=== PATIENT | male | born 1940 | race Caucasian/White ===

== ENCOUNTER 2017-06-19 05:00 | Emergency (ER) | payer OTHER ==
[~2017-06-19] VITALS: Ht 185.4 cm; Wt 120.2 kg
[~2017-06-19 05:00] MED LIST: ACYCLOVIR 400400 MG PO; ALLOPURINOL 10100 M1 PO; AMBIEN 5 MG TABL5 M1 PO; ANALGESIC325 MG PO; ASPIR 8181 MG PO; ASPIRIN BUFFER325 MG PO; CARVEDILOL6.25 MG PO; CLONIDINE HCL0.2 M2 PO; COLACE100 MG PO; IMURAN 50MG TAB50 M1 PO; JANUMET 50-1,01 EACH PO; JANUVIA100 MG PO; LASIX 40 MG TAB40 M1 PO; LASIX 40 MG TAB40 MG PO; LEVEMIR SUBQ; LISINOPRIL10 MG PO; MIRALAX17 GM PO; MYFORTIC360 MG PO; NEPHROCAPS SOFT1 CAP PO; NIACINAMIDE500 M1 PO; NORVASC10 MG PO; OMEPRAZOLE20 MG PO; ONE DAILY MULT1 EACH PO; PHOSLO667 MG PO; PRINIVIL20 M1 PO; PROGRAF 1 MG1 MG PO; PROTONIX40 M2 PO; RENALPREN SOFTGE1 MG; SIMVASTATIN40 MG PO; SIMVASTATIN80 MG PO; SODIUM BICARBO650 M3 PO; VITAMIN D1000 UNI1 PO; ZANAFLEX4 M1 PO; ZOFRAN ODT4 MG PO; [UNRECOGNIZED DRUG - OTHER] PO
[2017-06-19] MEDS ORDERED: KEFLEX500 MG PO (05:26)
[2017-06-19] MEDS ORDERED: NORCO 5-325 TA1 EACH PO (06:11)
[2017-06-19 07:02] VITALS: BP 200/101
== END 2017-06-19 07:04 | disposition home or self-care (01) ==
LOC: ER 05:00
DX: S81.811A Laceration without foreign body, right lower leg, initial encounter (principal); E11.9 Type 2 diabetes mellitus without complications; I10 Essential (primary) hypertension; F10.99 Alcohol use, unspecified with unspecified alcohol-induced disorder; N19 Unspecified kidney failure; Z86.73 Personal history of transient ischemic attack (TIA), and cerebral infarction without residual deficits; Z90.49 Acquired absence of other specified parts of digestive tract; Z87.891 Personal history of nicotine dependence; Z91.041 Radiographic dye allergy status; Z79.4 Long term (current) use of insulin; W18.39XA Other fall on same level, initial encounter; Y93.01 Activity, walking, marching and hiking; Y92.003 Bedroom of unspecified non-institutional (private) residence as the place of occurrence of the external cause; Y99.8 Other external cause status

== ENCOUNTER 2018-02-12 10:18 | Inpatient (IN) | payer OTHER ==
[~2018-02-12] VITALS: Ht 185.4 cm; Wt 108.9 kg
--- NOTE | ~2018-02-12 | HC ---
[facility] [place] [address] CONSULTATION Name: CÉSAR AKHTAR Room #: 409-P [facility] IN M.R.#: [id number] Admission: 02/12/18 Attend Phys: Brian Tafoya Discharge: 02/13/18 Date of : 44 Report #: [id number] THIS REPORT FOR: //name// CC: Brian Tafoya Vito Kellogg DATE OF SERVICE: 02/13/2018 ATTENDING PHYSICIAN: Dr. Tafoya. REASON FOR CONSULTATION: Kidney transplant and hypertension. HISTORY OF PRESENT ILLNESS: The patient is well known to our service, previous dialysis patient who has had a renal transplant for several years. The transplant has done well with reasonably good renal function and a baseline creatinine level in the range of 1.0. Followed by Dr. Nguyen in our office on a regular basis, seen relatively recently and has been doing well. The patient fell, broke his left shoulder, after a few days decided to come to the hospital, comminuted fracture of left humerus was found. He is here to get it fixed. He is quite anxious as well, possibly even a little confused. PAST MEDICAL HISTORY: Longstanding diabetes mellitus, end-stage renal disease, status post dialysis right arm fistula, status post renal transplant, 2-drug immunosuppression doing well, hypertension can be severe, previous CVA, left hemiparesis x 10 years. HOME MEDICATIONS: Januvia 100 mg daily, allopurinol 100 mg daily, carvedilol 6.25 mg b.i.d., Myfortic 360 mg b.i.d., aspirin 81 mg daily, simvastatin 40 mg daily, lisinopril 10 mg daily, Zantac 150 mg daily, tacrolimus 0.5 mg b.i.d., chlorthalidone 25 mg daily, diazepam 4 mg at bedtime, hydrocodone p.r.n., Lantus insulin. FAMILY HISTORY: Negative for renal disease. SOCIAL HISTORY: Former cigarette smoker, was a heavy smoker, but has quit for a while now. No substantial alcohol. REVIEW OF SYSTEMS: GENERAL: He is very anxious. EYES: Vision is okay. ENT: Hearing okay. No mouth sores. ENDOCRINE: Positive for the diabetes. RESPIRATORY: He denies shortness of breath, pleuritic pain, cough or hemoptysis. CARDIAC: Denies chest pain, angina, history of myocardial infarction, does have [facility] [address] [place] [address] CONSULTATION Name: CÉSAR AKHTAR Room #: 409-P [facility] IN M.R.#: [id number] Admission: 02/12/18 Attend Phys: Brian Tafoya Discharge: 02/13/18 Date of : 44 Report #: [id number] chronic leg swelling. GASTROINTESTINAL: Appetite okay. No nausea, vomiting, diarrhea or bloody stools. GENITOURINARY: Reasonably good stream. No hematuria noted. PSYCHIATRIC: Quite anxious. NEUROMUSCULAR: Left hemiparesis after his stroke. PHYSICAL EXAMINATION: GENERAL: This is a very anxious, tremulous gentleman, seen in his hospital bed. SKIN: Multiple ecchymoses throughout. SKELETAL: Overweight. HEENT: Extraocular movements are full. Vision intact. No scleral icterus. Hearing intact. Mucous membranes moist. NECK: Supple, no carotid bruits can be heard. CHEST: Clear to auscultation. HEART: Regular without murmurs, gallops or rubs. ABDOMEN: Soft and nontender, without bruits, masses, or organomegaly. EXTREMITIES: Left hemiparesis is apparent and 1+ brawny lower extremity edema also apparent. LABORATORY DATA: Hemoglobin is 13.7, platelets 149. Sodium 137, potassium 3.4, chloride 101, bicarbonate 29, creatinine 0.9, BUN 20. ASSESSMENT AND PLAN: 1. Renal transplant, has been stable on 2-drug immunosuppression. These will be continued, mycophenolate and tacrolimus. 2. Status post comminuted fracture left humerus. Orthopedics on consult. 3. Difficult hypertension. Medications adjusted, saline stopped. 4. Status post cerebrovascular accident with left hemiparesis. 5. High anxiety. 6. Diabetes mellitus. <ELECTRONICALLY SIGNED> By: Ty Flores MD 02/18/18 1022 0927 [id number] Ty Flores MD /nt
--- NOTE | ~2018-02-12 | HC ---
[facility] [place] [address] CONSULTATION Name: CÉSAR AKHTAR Room #: 409-P [facility] IN M.R.#: [id number] Admission: 02/12/18 Attend Phys: Brian Tafoya Discharge: 02/13/18 Date of : 44 Report #: [id number] THIS REPORT FOR: //name// CC: Brian Tafoya Vito Kellogg DATE OF SERVICE: 02/13/2018 CHIEF COMPLAINT: Left proximal humerus fracture. HISTORY OF PRESENT ILLNESS: This frail, heavy 77-year-old gentleman with multiple chronic medical problems had previous severe renal disease and I believe a successful renal transplant with satisfactory renal function at this point. He also had a stroke with very poor, limited function in the left upper extremity. He is still living with his and functioning adequately at home, but with some difficulty given these preexisting problems. He states he ambulates with a cane in a very limited fashion. He apparently fell at home injuring the left shoulder. X-rays in the Emergency Room reveal a fracture at the surgical neck extending down into the metaphyseal region. The humeral head is still well positioned and the glenoid. There is only minor degenerative change. He apparently had no other significant new injuries. Initially, the plan was for him to go home to the Emergency Department, but it was felt he was simply too unstable and uncomfortable to manage at home with only the assistance of his . He was therefore admitted for further evaluation and treatment and further planning. At the time of my evaluation, he is somewhat anxious and agitated, but is cooperative during my exam. He states he has very limited function of the left upper extremity due to his previous stroke and uses the arm only occasionally for gentle balancing. He notes he has generalized discomfort in other areas and has some chronic degenerative osteoarthritis. He notes he is ambulatory with a cane balancing this with the right hand. PHYSICAL EXAMINATION: He is quite heavy and deconditioned. There is a good deal of scarring and bruising in both upper extremities and old vascular access fistula in both arms. There is today a moderate amount of new bruising about the left arm with moderate scarring about the left arm and forearm. The left shoulder seems to be in satisfactory alignment. There is no obvious deformity. He is mildly uncomfortable with movement of the shoulder. The wrist, his hand is held in a somewhat flexed position consistent with chronic spasticity given his old stroke. In general, the left upper extremity appears to be nonfunctional from a general standpoint. X-rays of left shoulder reveal a mildly comminuted fracture in the surgical neck and extending down toward the metaphyseal region. There is moderate osteoporosis. The joint surfaces are well aligned. [address] [address] CONSULTATION Name: GIOVANACÉSAR AGUILAR Room #: 409-P [facility] IN M.R.#: [id number] Admission: 02/12/18 Attend Phys: Brian Tafoya Discharge: 02/13/18 Date of : 44 Report #: [id number] IMPRESSION: In general summary, I have explained to the patient that we might consider surgical repair of the fracture principally to allow better and safer movement and improve comfort; however, he is at significant risk for any surgery given his age and other general medical problems in the big picture fixation of the fracture will help much with left upper extremity function as he is essentially completely nonfunctional on that side as a result of his previous stroke. Given this, we both agreed that it would be better to avoid surgery if possible. I have explained that the fracture will be somewhat uncomfortable, but may be manageable with arm sling or shoulder immobilizer and I think there is a reasonably good potential this will heal in with nonsurgical treatment over the coming month or two. He states he would like to avoid surgery and has declined that option for now. He states he would like to leave the hospital and go home. I have explained that this will depend on his ability to be safe and function independently. I think the plan is for some ongoing therapy and assistance here and it has already been recommended that he might benefit from a short stay at an extended care facility. He is currently refusing that option. From my view; however, I doubt that he will be able to manage at home with his elderly unless he has other significant assistance from family and nursing and visiting therapy. When those arrangements are adequately established, then I think hospital discharge would be appropriate. He may continue with either arm sling or shoulder immobilizer for protection. I am happy to see him back in the office in 10-20 days for followup and repeat x-ray. If pain or instability is a severe problem that we may reconsider the option of surgical stabilization, but I think it is best to avoid surgery in this gentleman given the other significant problems. <ELECTRONICALLY SIGNED> By: Italo Dugan MD 02/15/18 1055 1238 1754 Italo Dugan MD /nt
[~2018-02-12 10:18] MED LIST changes: -CARVEDILOL6.25 MG PO; +COREG6.25 MG PO; +KEFLEX500 MG PO; +NORCO 5-325 TA1 EACH PO
[2018-02-12 10:19] VITALS: BP 197/97
[2018-02-12] MEDS ORDERED: NORCO 5-325 TA1 EACH PO (12:38)
[2018-02-12] MEDS ORDERED: MULTIVITAMINS1 EAC7 PO (13:36)
[2018-02-12] MEDS ORDERED: ONDANSETRON HCL4 M2 PO (13:36)
[2018-02-12] MEDS ORDERED: ZANTAC 150MG T150 MG PO (13:37)
[2018-02-12] MEDS ORDERED: CHLORTHALIDONE25 MG PO (13:39)
[2018-02-12] MEDS ORDERED: TACROLIMUS0.5 MG PO (13:39)
[2018-02-12] MEDS ORDERED: DIAZEPAM 2MG TAB2 MG PO (13:40)
[2018-02-12] MEDS ORDERED: LORCET PLUS 7.1 EACH PO (13:41)
[2018-02-12] MEDS ORDERED: LANTUS100 UNIT/M SUBQ (13:42)
[2018-02-12 15:03] LABS: ABSOLUTE NEUTROPHILS 7.2 thou/uL (1.4-8.2); BASOPHILS 0.5 % (0.0-2.0); EOSINOPHILS 4.7 % (0.0-3.0); LYMPHOCYTES 13.3 % (24.0-44.0); MCH 32.5 pg (26.0-34.0); MCHC 35.2 g/dL (28.0-37.0); MCV 92.3 fL (80.0-100.0); MONOCYTES 9.3 % (1.0-8.0); PLATELET COUNT 139 thou/uL (150-400); POLYS 72.2 % (36.0-66.0); RBC 4.01 mil/uL (4.50-6.00); RDW 13.5 % (10.5-14.5)
[2018-02-12 15:08] VITALS: BP 219/102
[2018-02-12 15:10] LABS: POTASSIUM 3.4 mmol/L (3.5-5.1)
[2018-02-12 16:03] VITALS: BP 221/95
[2018-02-12 17:27] VITALS: BP 207/116
[2018-02-12 18:06] VITALS: BP 145/69
[2018-02-12 21:13] VITALS: BP 165/82
[2018-02-13 01:12] LABS: URINE BILIRUBIN NEGATIVE (Negative); URINE BLOOD NEGATIVE (Negative); URINE CLARITY CLEAR; URINE COLOR YELLOW; URINE GLUCOSE-RANDOM* NEGATIVE (Negative); URINE KETONES NEGATIVE (Negative); URINE LEUKOCYTES-REFLEX NEGATIVE (Negative); URINE NITRITE-REFLEX NEGATIVE (Negative); URINE PROTEIN (DIPSTICK) 1+ (Negative); URINE UROBILINOGEN 0.2 E.U./dl (0.2-1.0)
[2018-02-13 01:34] LABS: CASTS None Seen /LPF (None Seen); SQUAMOUS None Seen /LPF (0-3); URINE RBC 0-2 Rare /HPF (0-2); URINE WBC-REFLEX 0-5 Rare /HPF (0-5)
[2018-02-13 01:35] LABS: BACTERIA-REFLEX None Seen /HPF (None Seen)
[2018-02-13 04:43] VITALS: BP 198/102
[2018-02-13 05:32] LABS: ABSOLUTE NEUTROPHILS 6.4 thou/uL (1.4-8.2); BASOPHILS 0.5 % (0.0-2.0); EOSINOPHILS 5.9 % (0.0-3.0); HEMOGLOBIN 13.7 gm/dL (14.0-18.0); LYMPHOCYTES 13.7 % (24.0-44.0); MCH 32.5 pg (26.0-34.0); MCHC 35.1 g/dL (28.0-37.0); MCV 92.7 fL (80.0-100.0); MONOCYTES 10.7 % (1.0-8.0); PLATELET COUNT 149 thou/uL (150-400); POLYS 69.2 % (36.0-66.0); RBC 4.21 mil/uL (4.50-6.00); RDW 14.3 % (10.5-14.5); WBC 9.2 thou/uL (4.0-11.0)
[2018-02-13 05:47] LABS: CALCIUM 9.9 mg/dL (8.5-10.1); CREATININE 0.9 mg/dL (0.7-1.3); MAGNESIUM 1.7 mg/dL (1.8-2.4); POTASSIUM 3.4 mmol/L (3.5-5.1)
[2018-02-13 07:13] LABS: GLYCOHEMOGLOBIN (HGB A1C) 5.7 % (4.8-5.6)
[2018-02-13 07:24] VITALS: BP 154/111
[2018-02-13 11:54] VITALS: BP 154/76
[2018-02-13 15:28] VITALS: BP 154/76
[2018-02-13] MEDS ORDERED: ACYCLOVIR 400400 MG PO (17:11)
[2018-02-13] MEDS ORDERED: NOVOLOG100 UNIT/1 SUBQ (17:11)
[2018-02-13] MEDS ORDERED: ENOXAPARIN30 MG/0.1 SUBQ (17:11)
[2018-02-13] MEDS ORDERED: CILOXAN3.5 GM OPHTHALMIC (17:11)
[2018-02-13 19:44] VITALS: BP 128/69
== END 2018-02-13 21:05 | DRG 562 ==
LOC: ER 10:18 → EROBS 13:25 → 4N 13:25
PROVIDERS: Nurse Practitioner
DX: S42.292A Other displaced fracture of upper end of left humerus, initial encounter for closed fracture (principal); N18.6 End stage renal disease; E43 Unspecified severe protein-calorie malnutrition; I69.951 Hemiplegia and hemiparesis following unspecified cerebrovascular disease affecting right dominant side; Z94.0 Kidney transplant status; I12.0 Hypertensive chronic kidney disease with stage 5 chronic kidney disease or end stage renal disease; I16.0 Hypertensive urgency; E11.22 Type 2 diabetes mellitus with diabetic chronic kidney disease; F41.9 Anxiety disorder, unspecified; E66.9 Obesity, unspecified; Z66 Do not resuscitate; Z79.899 Other long term (current) drug therapy; Z79.82 Long term (current) use of aspirin; W18.30XA Fall on same level, unspecified, initial encounter; Y93.89 Activity, other specified; Y92.89 Other specified places as the place of occurrence of the external cause; Y99.8 Other external cause status; Z90.49 Acquired absence of other specified parts of digestive tract; Z91.041 Radiographic dye allergy status; Z87.891 Personal history of nicotine dependence; Z98.49 Cataract extraction status, unspecified eye; Z68.31 Body mass index [BMI] 31.0-31.9, adult; Z99.2 Dependence on renal dialysis
CPT/HCPCS: 10790

== ENCOUNTER 2018-02-13 17:30 | Inpatient (IN) | payer OTHER ==
[~2018-02-13] VITALS: Ht 185.4 cm; Wt 105.6 kg
--- NOTE | ~2018-02-13 | HC ---
[facility] [place] [address] CONSULTATION Name: CÉSAR AKHTAR Room #: 505-P [facility] IN M.R.#: [id number] Admission: 02/13/18 Attend Phys: Italo Gil MD Discharge: Date of : 44 Report #: [id number] THIS REPORT FOR: //name// CC: Italo Hesterore Kellogg DATE OF SERVICE: 02/13/2018 HISTORY OF PRESENT ILLNESS: The patient is a 77-year-old white male with a prior CVA with left upper extremity flaccid paresis greater than left lower extremity weakness, a prior history of kidney failure on dialysis with subsequent renal transplant. He utilizes a right handheld 4-pronged cane to get into his power wheelchair. He is able to ambulate a short distance with the 4-pronged cane. He ended up having a fall onto his left side. This was a mechanical fall and occurred approximately 5 days prior to admission. He notes he was "stubborn" and did not come in right away. Upon admission, he was diagnosed with a displaced comminuted fracture of the surgical neck of the humerus. He has been admitted and is to be seen by Orthopedics. We are seeing him in rehabilitation medicine consultation. PAST MEDICAL HISTORY: Includes diabetes mellitus type 2, hypertension, and obesity. ALLERGIES: IODINATED CONTRAST. HABITS: Tobacco abuse, quit greater than a year ago, smoked for 40 years, 3 packs a day. Alcohol special occasions. SOCIAL HISTORY: Lives with , condominium, no steps. uses a cane to get around as well. He was able to transfer himself independently, but did need some assistance with dressing which his provided. REVIEW OF SYSTEMS: He has the left upper extremity pain. No current chest pain, shortness of breath or abdominal discomfort. PHYSICAL EXAMINATION: GENERAL: A 77-year-old overweight white male, somewhat cantankerous, in no obvious distress. VITAL SIGNS: Last recorded temperature 97.8, pulse 87, respirations 18, blood pressure 154/111. He is alert. HEENT: Facies appeared symmetric. EXTREMITIES: Functional range of motion of the right upper extremity without focal weakness. Left upper extremity reveals significant ecchymosis of the proximal arm. He has considerable weakness of that left upper extremity, but it was difficult to assess with his fracture. He appears to have definite tightness of all 5 fingers with a fisted type positioning, but does have some [facility] [address] [place] [address] CONSULTATION Name: CÉSAR AKHTAR Room #: 505-P [facility] IN M.R.#: [id number] Admission: 02/13/18 Attend Phys: Italo Gil MD Discharge: Date of : 42 Report #: [id number] limited thumb and finger flexion. In his lower extremities, he has venous stasis changes. I would grade his strength at a 4-/5. Tone appeared to be intact. ASSESSMENT: A 77-year-old white male with the following problem list: 1. Left-sided hemiparesis, upper extremity greater than lower extremity. 2. Displaced comminuted fracture, surgical neck of the humerus. 3. Prior cerebrovascular accident. 4. Status post renal transplant. Had previously been on dialysis. 5. Diabetes mellitus. 6. Hypertension. PLAN: Orthopedics to evaluate. We will then need to see how he does with his therapies pending what Orthopedics recommends. We will be glad to follow along with you regarding his rehab therapy needs. <ELECTRONICALLY SIGNED> By: Italo Gil MD 02/25/18 1221 1125 2231 Italo Gil MD /[facility]
--- NOTE | ~2018-02-13 | HC ---
[facility] [place] [address] CONSULTATION Name: CÉSAR AKHTAR Room #: 505-P [facility] IN M.R.#: [id number] Admission: 02/13/18 Attend Phys: Italo Gil MD Discharge: Date of : 44 Report #: [id number] THIS REPORT FOR: //name// CC: Italo Hesterkendrick Kellogg DATE OF SERVICE: 02/16/2018 NEUROBEHAVIORAL STATUS EXAM: ATTENDING PHYSICIAN: Italo Gil MD. ALLIGATOR SHEAR OPERATOR: Maik Chau, PhD. CLINICAL PRESENTATION: The patient is a 77-year-old male admitted to the rehab unit at [facility] for comprehensive inpatient rehabilitation program to improve functional mobility and activities of daily living and self-care and mental status secondary to deficits from a possible head trauma from a fall and lingering deficits from an old CVA. He reported that he fell and suffered a displaced humerus fracture. He carries diagnoses of type 2 diabetes mellitus, hypertension, status post renal transplant and agitation. He also has a history of alcohol abuse. He has had previous treatment for an alcohol abuse disorder. It should be noted that he was drinking at the time of the fall. He reports an approximate 6-pack of beer daily. The stroke is reported to have been about 12 years ago. Prior to this most recent admission, he was living with the assistance of his in their home. The patient is retired from work as a clamp truck driver. He has a 10th grade education. TECHNIQUES UTILIZED: Clinical interview, review of medical records, staff consultation and behavioral observation, mini mental status exam 2 standard version and brief category fluency assessment. EXAMINATION FINDINGS: The patient was alert and cooperative with the assessment. He accurately described the reason for his hospitalization. He reports being irritable and easily frustrated. He does not report difficulty with sleep, appetite or energy level. He acknowledges his history of alcohol abuse. Increased anxiety and depression is also reported. Deficits with memory and word finding are described. His performance on the MMSE 2 brief version is in the mild to moderate range of impairment with a raw score of 12, T score 34 and percentile rank of 5. Performance on the MMSE 2 standard version is in the mild to moderate range of impairment with a T score 35 and functioning at the 7th percentile. Category [facility] [address] [place] [address] CONSULTATION Name: CÉSAR AKHTAR Room #: 505-P [facility] IN M.R.#: [id number] Admission: 02/13/18 Attend Phys: Italo Gil MD Discharge: Date of : 44 Report #: [id number] fluency is at the 12th percentile with a T score of 39. The patient is presenting with mild to moderate deficits in cognition. The extent of the cognitive disorder is likely consistent with his preexisting level of functioning. Variability in his use of alcohol is likely contributing to variability in his functioning within the community. DIAGNOSTIC IMPRESSION: Major neurocognitive disorder (dementia), unspecified, with intermittent irritability and decreased tolerance for frustration -- likely in the mild to moderate range of severity. Unspecified depressive disorder. RECOMMENDATIONS: The patient should be discouraged from further alcohol use. Medications with sedating features should be limited as much as possible. The use of an antidepressant with anxiolytic features may be of benefit. He is taking trazodone at night to assist with sleep. When irritable, gentle confrontation about the effect of his irritability on the environment will be of benefit to improve behavioral control. Thank you very much for allowing me to provide the consultation on this patient. <ELECTRONICALLY SIGNED> By: Maik Chau, PhD 02/17/18 1220 1436 0034 Maik Chau, PhD /nt
--- NOTE | ~2018-02-13 | H ---
[facility] [address] HISTORY AND PHYSICAL Name: CÉSAR AKHTAR Room #: 505-P AD[facility] IN M.R.#: [id number] Admission: 02/13/18 Attend Phys: Italo Gil MD Discharge: Date of : 44 Report #: [id number] THIS REPORT FOR: //name// CC: Italo Hesterore Kellogg DATE OF SERVICE: 02/14/2018 HISTORY AND PHYSICAL ADDENDUM/POSTADMISSION PHYSICIAN EVALUATION HISTORY OF PRESENT ILLNESS: Please see Emily Figueroa's dictation. I agree with her assessment and her examination. The patient has now been admitted for acute in-hospital inpatient rehabilitation. He has left hemiparesis with late effect of a CVA and has had balance problems with falling to the left. He sustained a displaced humerus fracture, is being handled non-conservatively as per Dr. Dugan with placement in an immobilizer. He has now been admitted for inpatient rehabilitation. Agree with the assessment and plan and diagnoses which include left hemiparesis, upper greater than lower extremity and late effect cerebrovascular accident as well as the displaced humeral fracture. From a post-admission physician evaluation, there are no relevant changes since the preadmission screening. Please see the above review of prior and current medical and functional conditions and comorbidities. Please see the previous and current functional status. As far as risk of complications, the patient has multiple medical comorbidities as noted above. He is a prior renal transplant patient as well. He will be involved in the interdisciplinary acute inpatient rehabilitation program with the goal of maximizing his functional independence, so that he can hopefully return back to his prior living situation. The initial plan of care involves the interdisciplinary acute inpatient rehabilitation program with the goal of maximizing his functional independence. Measurable functional goals for him will be especially working on independence with basic transfers from the bed to the chair for him, especially from the bed to the power wheelchair. He is nonweightbearing in the left upper extremity with the humerus fracture and is in the immobilizer. Prognosis is reasonably good with estimated length of stay probably at least 7-10 days, although I know he wants to leave earlier. We will simply need to see how he does functionally. Potential barriers would include his above noted comorbidities and his decreased functional status. <ELECTRONICALLY SIGNED> By: Italo Gil MD 02/25/18 1221 1250 1415 Italo Gil MD /[facility]
--- NOTE | ~2018-02-13 | H ---
[facility] [place] [address] HISTORY AND PHYSICAL Name: CÉSAR AKHTAR Room #: 505-P [facility] IN M.R.#: [id number] Admission: 02/13/18 Attend Phys: Italo Gil MD Discharge: 02/27/18 Date of : 44 Report #: [id number] THIS REPORT FOR: //name// CC: Italo Kellogg DO DATE OF SERVICE: 02/13/2018 HISTORY OF PRESENT ILLNESS: This is a 77-year-old gentleman who was originally admitted to [facility] after a fall at home. He presented 5 days later to the Emergency Department and was found to have a left displaced comminuted fracture of the surgical neck of the humerus. He was seen by Orthopedics and conservative treatment with no weightbearing and shoulder immobilizer was recommended. He has prior history of a CVA with left upper extremity flaccid paresis greater than the left lower extremity weakness. He also has history of kidney failure, on dialysis with subsequent renal transplant. He has been admitted to inpatient rehabilitation for further aggressive therapy treatment prior to returning back to his home. Today, he is seen in his room. He denies pain at present. He is easily agitated and is very irritated that I am asking him any questions. He is providing very limited history at this point and is mostly obtained from prior medical records and reviewed with staff. 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 ALLERGIES: IODINE CONTRAST. HABITS: Tobacco abuse. Quit greater than 1 year ago, smoked for 30 years, 3 packs a day. He is a social drinker. He is and lives with his . SOCIAL HISTORY: Lives in a house with his , it is all 1 level. There are zero steps to enter. He was using a quad cane around the home. He uses an electric scooter for longer distances and in the community. He required some assistance with dressing, which his provided at home. He was able to transfer himself independently prior. REVIEW OF SYSTEMS: Remainder of his 12-point review of systems negative except as listed in HPI. PHYSICAL EXAMINATION: VITAL SIGNS: 168/83, respirations 20, pulse of 86, temperature 36.4. GENERAL: He is awake, alert. He is oriented x 3. He is agitated and anxious. He is in no acute distress. HEENT: EOMs intact. Facies appear symmetrical. [facility] [address] [place] [address] HISTORY AND PHYSICAL Name: CÉSAR AKHTAR Room #: 505-P [facility] IN .R.#: [id number] Admission: 02/13/18 Attend Phys: Italo Gil MD Discharge: 02/27/18 Date of : 44 Report #: [id number] CHEST: Clear to auscultation bilaterally. CARDIOVASCULAR: S1, S2. SKIN: Scattered bruising in bilateral extremities, especially left shoulder large ecchymosis. EXTREMITIES: Right upper extremity functional range of motion intact. Left upper extremity and shoulder immobilizer, left hand fingers tightness ____ position. Bilateral lower extremity venous stasis changes. Tone intact. Bilateral lower extremity strength 4-/5. No clonus. NEUROLOGIC: Sensation intact. LABORATORY DATA: On 02/13/2018, sodium 137, potassium 3.4, BUN 20, creatinine 0.9, magnesium 1.7, calcium 9.9, hemoglobin A1c 5.7. WBC is 9.2, hemoglobin 13.7, hematocrit 39, platelets 149. Vitamin B12 646. Chest x-ray on 02/12 shows no acute process. Urinalysis on 02/13 negative for UTI. ASSESSMENT: 1. Left hemiparesis, upper extremity greater than lower extremity. 2. Late effect cerebrovascular accident. 3. Displaced humerus fracture. 4. Type 2 diabetes mellitus. 5. Hypertension. 6. Status post renal transplant. 7. Agitation. PLAN: The patient is admitted to inpatient rehabilitation. He will be on physical, occupational therapies. I have placed a consult for Speech Therapy to evaluate cognition as the patient was living at home with independent prior. We will continue to assess his rehabilitation therapy needs. ADDENDUM HISTORY AND PHYSICAL/POST-ADMISSION PHYSICAL EVALUATION Please see my prior consult note dictation from yesterday. Please see nurse practitioner, Emily Figueroa's, history and physical which I agree. The patient has been admitted for acute in-hospital inpatient rehabilitation. Temperature 36.4, pulse 86, respirations 20, blood pressure 168/83. He has the left hemiparesis and prior CVA with gait instability and had a fall onto his left upper body sustaining a left humeral fracture. He is being handled conservatively as per Dr. Dugan in Orthopedics. He does have considerable ecchymosis of that left shoulder. He had considerable agitation and frustration yesterday and we are trying to work with him further today. Again, see the nurse practitioner's history and physical examination. No [facility] [address] [place] [address] HISTORY AND PHYSICAL Name: CÉSAR AKHTAR Room #: 505-P [facility] IN M.R.#: [id number] Admission: 02/13/18 Attend Phys: Italo Gil MD Discharge: 02/27/18 Date of : 44 Report #: [id number] further changes are made in this regard. Functionally, he has been max assist with bed to chair transfers and has taken up to 4 steps. He has a powered wheelchair that he utilize at home, but could transfer himself with a cane. The post-admission physician evaluation is performed and there are no relevant changes since the preadmission screening. Please see the above dictated review of prior and current medical and functional conditions and comorbidities. Please see the patient's previous and current functional status. As far as risk of complications, the patient does have multiple medical comorbidities as noted above. The initial plan of care involves the interdisciplinary acute inpatient rehabilitation program with the goal of maximizing his functional independence, so that he can hopefully return back to his prior living situation. Measurable functional goals would be for him to achieve independence with basic transfers if at all possible. He needs to get to a point where his can handle him at home again. Prognosis is reasonably good with estimated length of stay probably at least 10 days to 2 weeks pending progress. Potential barriers would include the pain, shoulder immobilizer and his decreased functional status as well as his multiple medical comorbidities. The patient meets diagnostic criteria for an acute in-hospital inpatient rehabilitation stay. He does have the left hemiparesis. He has late effect cerebrovascular accident and now he has the complication with the left humeral fracture, being treated nonsurgically. He also has his noted medical comorbidities and is status post prior renal transplant. He does meet the medical necessity criteria for an acute in-hospital inpatient rehabilitation stay. He does have the tolerance for therapies and has appropriate discharge goals back to the home setting. <ELECTRONICALLY SIGNED> By: TIAGO Hicks 03/01/18 [id number] [id number] TIAGO Hicks /nt
--- NOTE | ~2018-02-13 | PLAN ---
[facility] [place] [address] [place] [address] REHAB UNIT PLAN OF CARE Name: CÉSAR AKHTAR Room #: 505-P ADM IN M.R.#: [id number] Admission: 02/13/18 Attend Phys: Italo Gil MD Discharge: Date of : 44 Report #: [id number] THIS REPORT FOR: //name// CC: Italo Pendletonvitaliy Kellogg DATE OF SERVICE: 02/15/2018 PROGRESS NOTE AND OVERALL PLAN OF CARE The patient is seen back today in followup. He is frustrated by his need to be here on rehabilitation, but he appears to understand what her goals are after I explained further to him. His last recorded temperature 36.3, pulse 82, respirations 17, blood pressure was 149/91. No focal calf swelling. Left upper extremity is in an immobilizer. Transfers have been mod assist. He has ambulated 5 feet mod assist with a quad cane. In occupational therapy, lower body dressing is max assist. In speech therapy, he has moderate comprehensive deficits. ASSESSMENT: 1. Left hemiparesis, upper extremity greater than lower extremity. 2. Late effect cerebrovascular accident. 3. Displaced humeral fracture. 4. Diabetes mellitus type 2. 5. Hypertension. 6. Status post renal transplant. PLAN: The overall plan of care is based on the preadmission screen, post-admission physician evaluation and information garnered from therapy assessments. 1. Estimated length of stay is probably at least 7 days and likely longer as needed. 2. Medical prognosis is reasonably good. 3. Anticipated interventions includes the interdisciplinary acute inpatient rehabilitation program with goal of maximizing his functional independence, he can hopefully return back to his prior living situation. 4. Anticipated functional outcomes would be for the patient to become modified independent with basic transfers as he was able to do before as well as improvement with his ADLs, so he can reach his prior level of functional independence to return back home. 5. Discharge destination would be back home with his . 6. Expected therapy by discipline includes PT and OT and speech therapy, 1-1/2 hours per day each five days a week throughout the duration of the acute [address] [address] REHAB UNIT PLAN OF CARE Name: CÉSAR AKHTAR Room #: 505-P [facility] IN M.R.#: [id number] Admission: 02/13/18 Attend Phys: Italo Gil MD Discharge: Date of : 44 Report #: [id number] inpatient rehabilitation stay. We may be able to taper off the speech therapy in favor of more PT and OT depending upon how he does. <ELECTRONICALLY SIGNED> By: Italo Gil MD 02/25/18 1221 [id number] Italo Gil MD /PMT
[~2018-02-13 17:30] MED LIST changes: +CHLORTHALIDONE25 MG PO; +CILOXAN3.5 GM OPHTHALMIC; +DIAZEPAM 2MG TAB2 MG PO; +ENOXAPARIN30 MG/0.1 SUBQ; +LANTUS100 UNIT/M SUBQ; +LORCET PLUS 7.1 EACH PO; +MULTIVITAMINS1 EAC7 PO; +NOVOLOG100 UNIT/1 SUBQ; +ONDANSETRON HCL4 M2 PO; +TACROLIMUS0.5 MG PO; +ZANTAC 150MG T150 MG PO
[2018-02-14 08:38] VITALS: BP 168/83
[2018-02-14 10:15] LABS: HEMOGLOBIN 14.6 gm/dL (14.0-18.0); MCH 32.6 pg (26.0-34.0); MCHC 34.8 g/dL (28.0-37.0); MCV 93.8 fL (80.0-100.0); RBC 4.47 mil/uL (4.50-6.00); RDW 14.1 % (10.5-14.5); WBC 9.2 thou/uL (4.0-11.0)
[2018-02-14 10:26] LABS: CALCIUM 9.7 mg/dL (8.5-10.1); CREATININE 0.9 mg/dL (0.7-1.3); MAGNESIUM 1.6 mg/dL (1.8-2.4); POTASSIUM 3.9 mmol/L (3.5-5.1)
[2018-02-14 20:04] VITALS: BP 141/51
[2018-02-15 08:10] VITALS: BP 149/91
[2018-02-15 19:46] VITALS: BP 108/68
[2018-02-16 16:45] VITALS: BP 173/93
[2018-02-16 19:30] VITALS: BP 165/86
[2018-02-17 07:52] VITALS: BP 151/58
[2018-02-17 20:00] VITALS: BP 107/85
[2018-02-18 06:10] LABS: ALBUMIN 3.1 g/dL (3.4-5.0); CALCIUM 8.9 mg/dL (8.5-10.1); CREATININE 0.8 mg/dL (0.7-1.3); PHOSPHORUS 3.2 mg/dL (2.5-4.9); POTASSIUM 3.9 mmol/L (3.5-5.1)
[2018-02-18 07:52] VITALS: BP 144/83
[2018-02-18 16:35] VITALS: BP 121/49
[2018-02-18 19:05] VITALS: BP 96/63
[2018-02-19 08:00] VITALS: BP 140/78
[2018-02-19 19:17] VITALS: BP 108/47
[2018-02-20 06:48] LABS: ALBUMIN 3.3 g/dL (3.4-5.0); CALCIUM 8.9 mg/dL (8.5-10.1); CREATININE 1.2 mg/dL (0.7-1.3); PHOSPHORUS 3.8 mg/dL (2.5-4.9); POTASSIUM 3.7 mmol/L (3.5-5.1)
[2018-02-20 07:30] VITALS: BP 136/72
[2018-02-20 16:50] VITALS: BP 138/89
[2018-02-20 19:40] VITALS: BP 134/53
[2018-02-21 07:50] VITALS: BP 135/67
[2018-02-21 20:28] VITALS: BP 138/74
[2018-02-22 06:12] LABS: ALBUMIN 3.5 g/dL (3.4-5.0); CALCIUM 9.2 mg/dL (8.5-10.1); PHOSPHORUS 2.7 mg/dL (2.5-4.9); POTASSIUM 4.2 mmol/L (3.5-5.1)
[2018-02-22 08:30] VITALS: BP 151/68
[2018-02-22 20:10] VITALS: BP 146/80
[2018-02-23 07:30] VITALS: BP 171/77
[2018-02-23 11:30] VITALS: BP 168/77
[2018-02-23 21:24] VITALS: BP 164/55
[2018-02-24 08:59] VITALS: BP 145/56
[2018-02-24 11:40] VITALS: BP 146/75
[2018-02-24 19:13] VITALS: BP 135/52
[2018-02-25 04:21] LABS: ABSOLUTE NEUTROPHILS 6.3 thou/uL (1.4-8.2); BASOPHILS 0.7 % (0.0-2.0); EOSINOPHILS 3.8 % (0.0-3.0); HEMATOCRIT 38.2 % (42.0-52.0); HEMOGLOBIN 13.1 gm/dL (14.0-18.0); MCH 32.5 pg (26.0-34.0); MCHC 34.4 g/dL (28.0-37.0); MCV 94.4 fL (80.0-100.0); MONOCYTES 11.2 % (1.0-8.0); PLATELET COUNT 180 thou/uL (150-400); POLYS 66.3 % (36.0-66.0); RBC 4.04 mil/uL (4.50-6.00); RDW 14.6 % (10.5-14.5); WBC 9.4 thou/uL (4.0-11.0)
[2018-02-25 04:24] LABS: CALCIUM 9.7 mg/dL (8.5-10.1); CREATININE 0.9 mg/dL (0.7-1.3)
[2018-02-25 08:15] VITALS: BP 145/79
[2018-02-25 19:00] VITALS: BP 100/62
[2018-02-26 08:00] VITALS: BP 145/70
[2018-02-26 14:36] VITALS: BP 130/62
[2018-02-26] MEDS ORDERED: NOVOLOG100 UNIT/1 SUBQ (17:22)
[2018-02-26 19:12] VITALS: BP 154/60
[2018-02-27 06:00] VITALS: BP 147/55
[2018-02-27 07:40] VITALS: BP 160/59
[2018-02-27 10:09] VITALS: BP 130/62
== END 2018-02-27 10:10 | disposition home health service (06) | DRG 563 ==
LOC: ENTRNSPT 02-27 09:47 → EDTRNSPTSTS 02-27 09:48
PROVIDERS: Family Medicine; Hospitalist; Internal Medicine Nephrology; Nurse Practitioner Family
DX: S42.212A Unspecified displaced fracture of surgical neck of left humerus, initial encounter for closed fracture (principal); Z94.0 Kidney transplant status; I69.954 Hemiplegia and hemiparesis following unspecified cerebrovascular disease affecting left non-dominant side; E11.9 Type 2 diabetes mellitus without complications; I10 Essential (primary) hypertension; E66.9 Obesity, unspecified; E53.8 Deficiency of other specified B group vitamins; E55.9 Vitamin D deficiency, unspecified; K59.00 Constipation, unspecified; F01.50 Vascular dementia, unspecified severity, without behavioral disturbance, psychotic disturbance, mood disturbance, and anxiety; F32.9 Major depressive disorder, single episode, unspecified; M25.519 Pain in unspecified shoulder; Z99.2 Dependence on renal dialysis; Z91.041 Radiographic dye allergy status; Z87.891 Personal history of nicotine dependence; W19.XXXA Unspecified fall, initial encounter; Y93.89 Activity, other specified; Y92.098 Other place in other non-institutional residence as the place of occurrence of the external cause; Y99.8 Other external cause status; Z68.30 Body mass index [BMI] 30.0-30.9, adult
CPT/HCPCS: 10112

== ENCOUNTER 2019-12-11 12:38 | Inpatient (IN) | payer OTHER ==
[~2019-12-11] VITALS: Ht 182.9 cm; Wt 94.2 kg
--- NOTE | ~2019-12-11 | H ---
[facility] [place] [address] HISTORY AND PHYSICAL Name: CÉSAR AKHTAR Room #: 354-P ADM IN M.R.#: [id number] Admission: 12/11/19 Attend Phys: Joyce Liao MD Discharge: Date of : 42 Report #: [id number] THIS REPORT FOR: //name// CC: Aroldo Liao DATE OF SERVICE: 12/11/2019 CHIEF COMPLAINT: Decreased responsiveness with a recent flu a week ago. HISTORY OF PRESENT ILLNESS: The patient is a 79-year-old gentleman known to our hospital with prior hospitalization and has a longstanding history of diabetes mellitus type 2, hypertension, dementia, alcohol related neurocognitive disorder, end-stage renal disease with a history of dialysis and then status post kidney transplant and two immunosuppressant drugs on board. The patient recently was [facility] and he was given Tamiflu for last 5 days. The patient's informs me that for the last couple of days, which is basically 2-3 days, but not specifically she informs that for last 2-3 days, he has been having severe diarrhea and also he has been less communicative and has not been able to eat or drink much. informs me that the patient started with flu-like symptoms approximately 5-6 days ago, but at that time, he was awake and alert and was eating and drinking well; however, was diagnosed with flu and he was started on Tamiflu as per the jail physician and then the patient started having significant diarrhea in last 2-3 days with decreased oral intake and has progressively gotten worse and today all he has done is moan and complaining of abdominal pain and has been coughing intermittently. The patient's does not recall him having any fever or shaking chills in the last 24-48 hours as per and has not had any nausea or vomiting either, diarrhea profuse watery is what she describes as just a large amount of diarrhea and decreased oral intake. The patient received two 250 mL boluses as soon as en route and EKG showed first-degree heart block and the patient when arrived in the ER, was afebrile, drowsy and moaning, but responding to any tactile stimulus and responding to his name and he had stat blood work done and IV fluid started. CBC with diff, comprehensive metabolic panel, blood gas and urinalysis was done. Venous blood gas indicated pH of 7.403 and a pCO2 of 39 and the patient had lactate of 2.81 elevated, on room air and oxygen saturation was 95% when he arrived on room air; however, was placed on 2 liters of oxygen by nasal cannula because of the cough and respiratory symptoms. The patient was complaining of abdominal pain and so CT scan of the abdomen and pelvis was done without contrast and for altered mental status, ER physician had a CT scan of the head. CT head showed significant brain atrophy and also no acute changes and CT scan of abdomen and pelvis showed enlarged right ileocolic nodes and a left pelvic renal transplant without hydronephrosis. The patient also had mild basilar pulmonary atelectasis as well as infiltrate. Even though the chest x-ray was negative, but a CT scan of the abdomen and pelvis indicated [facility] [address] [place] [address] HISTORY AND PHYSICAL Name: CÉSAR AKHTAR Room #: 354-P [place] IN M.R.#: [id number] Admission: 12/11/19 Attend Phys: Joyce Liao MD Discharge: Date of : 42 Report #: [id number] pulmonary infiltrate and severe bilateral __ renal atrophy. The patient is being admitted to critical care tele with sepsis and pneumonia and diarrhea of unclear etiology and acute renal insufficiency. PAST MEDICAL HISTORY: 1. The patient's informs me that the patient has had a stroke more than 10 years ago with residual left sided hemiplegia and hemiparesis. The patient is basically bedbound and has been nonambulatory. 2. The patient has had end-stage renal disease with dialysis initially followed by Dr. Nguyen in clinic and then status post kidney transplant and currently on 2 immunosuppressant drugs. 3. Hypertension. 4. Diabetes mellitus type 2. 5. History of neurocognitive disorder of moderate severity with dementia. 6. History of alcohol abuse and dependence. 7. Chronic obstructive pulmonary disease. 8. Hyperlipidemia. 9. Severe malnutrition. 10. Major depressive disorder. ALLERGIES: ACCORDING TO THE THE PATIENT IS ALLERGIC TO IODINE, WHICH CAUSES SWELLING OF THE BODY. PERSONAL AND SOCIAL HISTORY: The patient quit smoking 20 years ago; however, prior to that, he had 2 packs per day smoking history and a patient drank a lot of alcohol according to the and he still continues to drink some at the jail, but currently he is only having beer and according to the , the patient has not sustained any fall as he has been basically bedbound for quite some time. The patient has advanced directives, is the durable power of health care attorney for health and she is the emergency contact and her number is [phone] and informs me that the patient actually has wished to be DNR. PAST SURGICAL HISTORY: The patient has had AV fistula in his right arm and also has had a kidney transplant 7 years ago. does not recall any other surgeries. FAMILY HISTORY: Mother had lung cancer, which was related to heavy tobacco use and she does not recall any history on the paternal side of the family. CURRENT MEDICATIONS: 1. The patient is on carvedilol. 2. Lisinopril. 3. Lantus insulin. 4. Januvia. 5. Allopurinol. 6. Mycophenolate sodium. [facility] [place] [address] HISTORY AND PHYSICAL Name: CÉSAR AKHTAR Room #: 354-P [place] IN M.R.#: [id number] Admission: 12/11/19 Attend Phys: Joyce Liao MD Discharge: Date of : 42 Report #: [id number] 7. Tacrolimus. 8. Aspirin. 9. Docusate sodium. 10. Simvastatin. 11. Multivitamin. 12. Ranitidine. 13. Chlorthalidone. 14. Diazepam at bedtime. 15. Hydrocodone with acetaminophen daily p.r.n. for pain. 16. Sliding scale insulin. 17. Norflex 100 b.i.d. for muscle spasm recently given. REVIEW OF SYSTEMS: 1. The patient is just moaning and groaning and also just responding to his name and is unable to give any review of system history and according to the , the patient has had decreased p.o. intake. 2. Profuse diarrhea. 3. Flu 5 days ago. 4. Cough with a decreased responsiveness for last 2 days. PHYSICAL EXAMINATION: VITAL SIGNS: At the time of examination, the patient had temperature 36.6, heart rate 65, respiration 18, blood pressure 113/56 and pulse oximeter 96% on room air. GENERAL: The patient was somnolent, responding to his name, but however, falls asleep again and easily arouses or rather agitated when tactile stimulus or any IV blood draw was given or Perez catheter was placed. The patient was very agitated and angry with any physical touch and was moving all 4 extremities. HEENT: Pupils were equally round, reactive to light. Extraocular muscle movement could not be tested. Conjunctivae clear. Sclerae nonicteric. Scalp was atraumatic, normocephalic. Mucous membranes dry. However, oropharynx exam was very limited as the patient was not opening his mouth fully. NECK: No lymphadenopathy. No thyromegaly noted. HEART: S1, S2, regular. No murmur, S3 or S4 noted. LUNGS: Coarse breath sounds in the bases bilaterally with crackles noted. No wheezes noted. ABDOMEN: The patient was sensitive to touch with any abdominal exam in the whole belly; however, abdomen remained soft and no rigidity noted. Just diffuse discomfort all throughout the abdomen, but the abdomen was nondistended and no mass palpable. EXTREMITIES: The patient is moving all four extremities, no edema noted. SKIN: The patient had a sacral decubitus ulcer noted on his skin. NEUROLOGICAL EXAM: The patient was somnolent, old left sided hemiparesis with some residual weakness noted, but when the patient was agitated, he was moving all [address] [address] HISTORY AND PHYSICAL Name: CÉSAR AKHTAR Room #: 354-P [facility] IN M.R.#: [id number] Admission: 12/11/19 Attend Phys: Joyce Liao MD Discharge: Date of : 42 Report #: [id number] ELECTROCARDIOGRAM: Normal sinus rhythm with heart rate 61 and QTc was prolonged at 571. LABORATORY DATA: The patient had a WBC count significantly elevated at 20,600 with bandemia 5% and segmented neutrophil 80%. The patient had a hemoglobin 13.0, hematocrit 39.4, and platelet 151 with normal indices for red blood cells. Chemistries indicate sodium 137, potassium critically low at 2.6, chloride 100, bicarbonate 25, anion gap 12, BUN 88, creatinine elevated at 2.1 with the patient's baseline creatinine being 1.0, estimated GFR today is 31. Serum glucose was elevated to 233, calcium 8.5, phosphorus 3.5, magnesium 2.0, total bilirubin 0.8, AST 24, ALT 24, alkaline phosphatase 97. Troponin I is 0.18, total protein 5.6, albumin 1.8, lipase 56. Influenza A and B were negative and anion gap was normal at 12. Blood cultures were sent from the Emergency Room are pending at the time of dictation. CT scan of abdomen and pelvis without contrast was unremarkable except both lower lungs with minimal infiltrate noted. Diffuse bladder wall thickening and nonspecific ileocolic lymph node noted, transplanted kidney in the left pelvis noted without any hydronephrosis and status post cholecystectomy noted. Chest x-ray indicated no acute cardiopulmonary process, borderline heart size and mild pulmonary fibrosis and CT scan of the head indicated a generalized parenchymal volume loss, no evidence of midline shift. Basal cisterns are patent and no CT evidence of acute transcortical transterritorial infarction. Paranasal sinuses and mastoid cells were clear and chronic small vessel ischemic disease noted. ASSESSMENT AND PLAN: 1. The patient is being admitted with sepsis and a source could be multifactorial. The patient had recent flu or influenza diagnosed 5 days ago and the patient has completed Tamiflu course. However, CT scan showed bibasilar infiltrates and also the patient has had significant diarrhea with abdominal discomfort and so we will go ahead and treat both the chest as well as abdomen with broad-spectrum antibiotic as the patient is immunocompromised. Vancomycin, cefepime and metronidazole for gram-positive and gram-negative and anaerobic coverage has been started. We will follow up on blood cultures and urinalysis is negative; however, we will send for urine culture. Repeat lactic acid has normalized after IV fluid hydration has been done and it was 1.9, and we will continue maintenance IV fluids at the current time for dehydration. 2. Acute renal insufficiency, acute kidney injury with chronic kidney disease and a history of kidney transplant approximately 7 years ago. The patient is on 2 immunosuppressants drugs, mycophenolate and tacrolimus and he has done well so far. We will go ahead and place a Perez catheter and do accurate intake and output. The patient had significant trouble with emptying his bladder and so Perez catheter was placed and accurate intake and output, daily weight, avoid any nephrotoxic agents and monitor kidney function and Nephrology consult has been placed and Dr. Tabares had been informed. 3. Diabetes mellitus type 2 with hyperglycemia. The patient will be on sliding [facility] [address] [place] [address] HISTORY AND PHYSICAL Name: CÉSAR AKHTAR Room #: 354-P [place] IN .R.#: [id number] Admission: 12/11/19 Attend Phys: Joyce Liao MD Discharge: Date of : 42 Report #: [id number] scale insulin and q. 4 hour Accu-Cheks and avoid hypoglycemia; however, we will treat glucose aggressively and if hypoglycemic, then we will start D5 as the patient is currently n.p.o. 4. Altered mental status. The patient has been moaning and groaning with pain. At jail, he has been taking hydrocodone as needed and the patient did receive Narcan in the Emergency Room; however, not much response obtained from Narcan, likely the altered mental status was because of encephalopathy with underlying dementia, neurocognitive disorder associated with alcohol and along with underlying sepsis, toxic metabolic encephalopathy as another etiology for worsening his mental status. However, we will go ahead and do neuro checks for now and if any change other than left sided weakness noted, then we will go ahead and get MRI and Neurology consult. 5. Severe malnutrition with albumin of 1.9. The patient will be seen by cocoa bean cleaner, currently he is n.p.o. We will do bedside swallow evaluation or speech therapy evaluation once the patient is more awake and until then, we will keep n.p.o. and we will start IV fluids for now for calories. 6. Hypertension. The patient is currently normotensive. We will hold blood pressure lowering agents for now and definitely hold lisinopril and hydralazine as needed for systolic blood pressure greater than 160. 7. CODE STATUS: The patient is DNR and order has been written. 8. Deep venous thrombosis prophylaxis with heparin and GI prophylaxis with renal dose of Pepcid. 9. For profuse diarrhea, we will go ahead and send stool for C. diff and the PCR for common bacterial infection and will treat empirically with Flagyl until definitive culture results are back and then we will do specific therapy. Plan of care was discussed with in detail. By: 13 37 Joyce Laio MD /nt
[~2019-12-11 12:38] MED LIST changes: +NORFLEX100 MG PO
[2019-12-11 12:39] VITALS: BP 102/54
[2019-12-11 13:12] LABS: HEMATOCRIT 39.4 % (42.0-52.0); MCHC 33.1 g/dL (28.0-37.0); MCV 90.6 fL (80.0-100.0); PLATELET COUNT 151 thou/uL (150-400); RBC 4.35 mil/uL (4.50-6.00); RDW 13.6 % (10.5-14.5); WBC 20.6 thou/uL (4.0-11.0)
[2019-12-11 13:20] LABS: URINE BILIRUBIN NEGATIVE (Negative); URINE BLOOD NEGATIVE (Negative); URINE CLARITY CLEAR; URINE COLOR YELLOW; URINE GLUCOSE-RANDOM* NEGATIVE (Negative); URINE KETONES NEGATIVE (Negative); URINE LEUKOCYTES-REFLEX NEGATIVE (Negative); URINE NITRITE-REFLEX NEGATIVE (Negative); URINE PROTEIN (DIPSTICK) 2+ (Negative); URINE SPECIFIC GRAVITY 1.025 (1.005-1.035); URINE UROBILINOGEN 0.2 E.U./dl (0.2-1.0)
[2019-12-11 13:32] LABS: SQUAMOUS None Seen /LPF (0-3); URINE RBC None Seen /HPF (0-2); URINE WBC-REFLEX 0-5 Rare /HPF (0-5)
[2019-12-11 13:33] LABS: AMORPHOUS URATES Moderate /LPF (None Seen); CASTS None Seen /LPF (None Seen)
[2019-12-11 13:42] LABS: ABSOLUTE NEUTROPHILS 19.2 thou/uL (1.4-8.2)
[2019-12-11 13:47] LABS: ALBUMIN 1.8 g/dL (3.4-5.0); CALCIUM 8.5 mg/dL (8.5-10.1); CREATININE 2.1 mg/dL (0.7-1.3); TOTAL BILIRUBIN 0.8 mg/dL (<0.1-1.0); TOTAL PROTEIN 5.6 g/dL (6.4-8.2); TROPONIN-I 0.18 ng/mL (<0.06)
[2019-12-11 13:51] LABS: POTASSIUM 2.6 mmol/L (3.5-5.1)
[2019-12-11 14:06] LABS: BE(vivo) -0.6 mmol/L (-2 to +3); PCO2 VENOUS 39.3 mmHg (41.0-51.0); PO2 VENOUS 37.1 mmHg (35.0-45.0)
[2019-12-11 14:31] VITALS: BP 102/54
[2019-12-11 15:24] LABS: PHOSPHORUS 3.5 mg/dL (2.5-4.9)
[2019-12-11] MEDS ORDERED: NORVASC 2.5 MG2.5 M1 PO (15:41)
[2019-12-11] MEDS ORDERED: ALKA-SELTZER G1 EAC1 PO (15:42)
[2019-12-11] MEDS ORDERED: SERTRALINE HCL100 MG PO (15:44)
[2019-12-11] MEDS ORDERED: ASTAGRAF XL0.5 MG PO (15:45)
[2019-12-11] MEDS ORDERED: TRAZODONE HCL50 MG PO (15:45)
[2019-12-11] MEDS ORDERED: TYLENOL WITH CO1 TA1 PO (15:46)
[2019-12-11] MEDS ORDERED: TYLENOL EXTRA500 MG PO (15:46)
[2019-12-11 16:12] VITALS: BP 113/56
--- NOTE | 2019-12-11 16:31 | EKG ---
[facility] [place] [address] ELECTROCARDIOGRAM REPORT Name: CÉSAR AKHTAR Room #: 354- ADM IN M.R.#: [id number] Admission: 12/11/19 Attend Phys: Joyce Liao MD Discharge: Date of : 44 Report #: [id number] THIS REPORT FOR: cc: Bonita Prabhakar MD, Janet MD Couchonnal,Simone Crabtree MD ~ THIS REPORT FOR: //name// [facility] ED Test Date: 2019-12-11 Test Time: 12:39:36 Pat Name: CÉSAR AKHTAR Department: Room: [facility] Gender: M Business Management Specialist[facility] 1940 Requested By: Juan Francisco Lorenzana Order Number: [id number] MD: Simone Gomez Measurements Intervals [place] Rate: 61 P: 0 OR: 155 QRS: 9 QRSD: 106 T: 47 QT: 566 QTc: 571 Interpretive Statements Atrial fibrillation. Compared to ECG 01/20/2010 08:00:43 First degree AV block no longer present Myocardial infarct finding still present Electronically Signed On 12-11-2019 16:30:51 [employer]ORE CLEANER by Simone Gomez [email or web address] <ELECTRONICALLY SIGNED> By: Simone Gomez MD 12/11/19 1630 1239 [id number] Simone Gomez MD /EPI
--- NOTE | 2019-12-11 18:02 | NUR ---
PATIENT ADMIT TO UNIT AT 1605. UNRESPENSIVE. VSS. RA. GENERLIZED EDEMA. PATIENT IS ON MULTI IV ABX. LOW URINE OUTPUT. WILL KEEP MONITOR.
[2019-12-11 19:43] VITALS: BP 143/53
[2019-12-12 03:52] LABS: ABSOLUTE NEUTROPHILS 17.1 thou/uL (1.4-8.2); BASOPHILS 0.2 % (0.0-2.0); EOSINOPHILS 0.1 % (0.0-3.0); HEMATOCRIT 42.8 % (42.0-52.0); HEMOGLOBIN 14.2 gm/dL (14.0-18.0); LYMPHOCYTES 1.9 % (24.0-44.0); MCH 30.1 pg (26.0-34.0); MCHC 33.2 g/dL (28.0-37.0); MCV 90.7 fL (80.0-100.0); MONOCYTES 4.7 % (1.0-8.0); PLATELET COUNT 127 thou/uL (150-400); POLYS 93.1 % (36.0-66.0); RBC 4.71 mil/uL (4.50-6.00); RDW 14.2 % (10.5-14.5); WBC 18.3 thou/uL (4.0-11.0)
[2019-12-12 03:53] VITALS: BP 143/53
[2019-12-12 04:00] LABS: ALBUMIN 1.8 g/dL (3.4-5.0); CREATININE 1.9 mg/dL (0.7-1.3); MAGNESIUM 2.1 mg/dL (1.8-2.4); PHOSPHORUS 2.7 mg/dL (2.5-4.9); TOTAL PROTEIN 5.6 g/dL (6.4-8.2); TROPONIN-I 0.22 ng/mL (<0.06)
[2019-12-12 04:25] VITALS: BP 147/70
[2019-12-12 04:27] LABS: POTASSIUM 2.7 mmol/L (3.5-5.1)
[2019-12-12 07:52] VITALS: BP 135/68
--- NOTE | 2019-12-12 08:16 | NUR ---
0730 received report from Mauricio patient moaning loudly pulling at telemtry leads. leads replaced.
--- NOTE | 2019-12-12 12:56 | NUR ---
WOUND CONSULT; THIS PATIENT WAS FOUND TO HAVE NO WOUNDS. PICTURE TAKEN. ONLY SLIGHT BLANCHABLE ERYHEMA. RECOMMENDATIONS; APPLY ZGUARD DAILY TO THE BUTTOCKS AND SACRUM DAILY/PRN RN PRESENT
--- NOTE | 2019-12-12 14:24 | HC ---
[facility] [place] [address] [place] [address] CONSULTATION Name: CÉSAR AKHTAR Room #: 354-P ADM IN M.R.#: [id number] Admission: 12/11/19 Attend Phys: Joyce Liao MD Discharge: Date of : 42 Report #: [id number] THIS REPORT FOR: cc: Bonita Prabhakar MD, Janet MD Al-Absi,Aroldo Bernstein MD ~ CC: Aroldo Liao DATE OF SERVICE: 12/11/2019 REASON FOR FOLLOWUP: Status post renal transplantation. REASON FOR PRESENTATION: Altered mental status. HISTORY OF PRESENT ILLNESS: This is a 79-year-old who is not able to provide me with the details of the history of present illness due to acute mental status changes. The patient was brought from his nursing facility due to an altered mental status. Details of the events are not available for me. I was consulted to manage his renal transplant condition. I had thoroughly reviewed the patient's clinic note and the previous consultation from Dr. Flores while at our facility. The patient is known to have cadaveric renal transplantation back in 2012. I do not have any recent labs on him from our clinic. He lost to follow up since 2015. His most recent labs from 04/2019 showed a creatinine of 1.0. The patient is currently maintained on Myfortic and Prograf per the nursing facility medication sheet. The patient was admitted for further evaluation and management of his mental status. Does look like that he has significant other comorbid conditions including and not limited to diabetes mellitus, hypertension, and neurocognitive disorders with history of dementia. He was recently treated for flu-like symptoms. He was initiated on Tamiflu. related to the admitting physician that he has been having some issues with abdominal pain and decreased oral intake. also related to the admitting physician that the patient had significant amount of diarrhea. CT of the abdomen and pelvis did not reveal any acute issues. There was a mention of an enlarged right ileocolic nodes. PAST MEDICAL HISTORY: 1. Remote history of stroke with residual left-sided hemiplegia. 2. Status post renal transplantation. 3. Hypertension. 4. Diabetes mellitus. 5. Immunosuppressed status. 6. Dementia. 7. Remote history of alcohol abuse. 8. Hyperlipidemia. [facility] [address] [place] [address] CONSULTATION Name: CÉSAR AKHTAR Room #: 354-P ADM IN M.R.#: [id number] Admission: 12/11/19 Attend Phys: Joyce Liao MD Discharge: Date of : 42 Report #: [id number] 9. Depression. ALLERGIES: CONTRAST. SOCIAL HISTORY: Resides in a nursing facility. He has been bedbound for some time. PAST SURGICAL HISTORY: 1. Right-sided AV fistula. 2. Renal transplantation back in 2012. FAMILY HISTORY: Per the medical chart, his mom had lung cancer. MEDICATIONS: 1. Carvedilol. 2. Lisinopril. 3. Januvia. 4. Allopurinol. 5. Mycophenolate. 6. Tacrolimus. 7. Chlorthalidone. REVIEW OF SYSTEMS: Completely unobtainable given the patient's current mental status; however, the related that he had profuse diarrhea. PHYSICAL EXAMINATION: Confused and disoriented. VITAL SIGNS: Temperature 36.6, heart rate 65, blood pressure is 112/56; however, he did have some hypotensive event yesterday. GENERAL: He is agitated. He is confused. CARDIOVASCULAR: Regular with no rub. CHEST: Decreased air entry bilaterally. ABDOMEN: Soft and nontender. EXTREMITIES: Lower extremities, no edema. Upper extremities, there is a right-sided brachiocephalic AV fistula. LABORATORY DATA: Reviewed. White blood cell count is down from 20.6-18.3. Sodium is 141, potassium is 2.7, BUN is 97, and creatinine is 1.9. Blood sugar is elevated at 250. Hemoglobin A1c is pending. Phosphorus and magnesium are within normal. Albumin is low at 1.8. Chest x-ray had no acute issues. ASSESSMENT, IMPRESSION AND PLAN: 1. Acute kidney injury. 2. Gram-positive cocci in blood. Bacteremia. 3. Hypotension related to the above. 4. Recent flu. [address] [address] CONSULTATION Name: CÉSAR AKHTAR Room #: 354-P ADM IN M.R.#: [id number] Admission: 12/11/19 Attend Phys: Joyce Liao MD Discharge: Date of : 42 Report #: [id number] 5. Post-renal transplantation with immunocompromised status. Creatinine back in 2019 was 1.0. 6. Continue with the aggressive hydration given his sepsis. 7. Appropriate antibiotic therapy initiated by the primary team. 8. Continue with the usual immunosuppressive medications. 9. Investigate the underlying cause for his bacteremia. 10. Investigate the source for his diarrhea. 11. Replace potassium. 12. We will continue to follow. <ELECTRONICALLY SIGNED> By: Aroldo Tabares MD 12/12/19 1424 [id number] [id number] Aroldo Tabares MD /nt
--- NOTE | 2019-12-12 15:13 | NUR ---
PATIENT ADMITTED FROM [facility]. PLAN IS FOR PATIENT TO RETURN TO [facility] ONCE MEDICALLY READY. ANTICIPATED WEEKEND DISCHARGE PLANNED. CALL PLACED TO [facility] ADMISSIONS. SPOKE WITH [facility]. [facility] STATES THEY ARE ABLE TO ACCEPT PATIENT AT DISCHARGE. SHOULD PATIENT BE CLEARED FOR DISCHARGE PLEASE COMPLETE CHART COPY AND CONTACT [facility] FOR DISCHARGE ARRANGEMENTS. [facility] CONTACT NUMBER [phone]. PLEASE FAX DC ORDERS TO [phone]. IF [facility] IS UNABLE TO TRANSPORT PATIENT, PLEASE CALL [facility] FOR TRANSPORTATION. [phone] FOR TRANSPORTATION NEEDS. THANK YOU
[2019-12-12 15:45] VITALS: BP 148/65
[2019-12-12 16:00] VITALS: BP 159/72
--- NOTE | 2019-12-12 16:29 | NUR ---
INITIAL ASSESSMENT: Pt was admitted from [facility] due to sepsis and pneumonia. Discussed with nursing and attending physician. Pt with hx of ETOH dementia. Pt may be made comfort care. Attending physician to discuss with pt's . Pt's facility is able to accept him back over the weekend if needed. SW is available to assist should needs arise.
--- NOTE | 2019-12-12 19:20 | NUR ---
Patient was very restless for most of the day. Moaning, hollering out he would answer some questions then start moaning again. He was repositioned all unecessary, lines and equipment removed, oral care provided, liquids given, pain medication given, lights dimmened, lights turned on. He continues to holler out. He will not leave his clothes on. He took his PO medications crushed would drink enough liquids to get them down. But he would not eat any food. His came in to visit he would not communicate with her although if I would state his name he would say "what,leave me alone".
[2019-12-12 19:29] VITALS: BP 141/66
[2019-12-13 00:09] LABS: GLYCOHEMOGLOBIN (HGB A1C) 6.1 % (4.8-5.6)
[2019-12-13 03:50] VITALS: BP 131/69
--- NOTE | 2019-12-13 03:53 | NUR ---
ASSUMED CARE OF PATIENT AT 1900. VSS. PATIENT CRYING OUT ALL NIGHT, MOANING. NO OBVIOUS SIGNS OF CAUSE OF DISTRESS. TRIED TO REORIENT, NO SUCCESS. ONE TIME ORBER OF RAH OBTAINED. PATIENT SLEPT FOR ONE HOUR. FREQUENT ORAL CARE DONE. WILL NOT KEEP GOWN, BLANKETS OR PILLOW ON BED. NOT PROGRESSING TOWARDS POC GOALS.
[2019-12-13 04:54] LABS: HEMATOCRIT 38.2 % (42.0-52.0); HEMOGLOBIN 12.4 gm/dL (14.0-18.0); MCHC 32.6 g/dL (28.0-37.0); MCV 92.2 fL (80.0-100.0); PLATELET COUNT 133 thou/uL (150-400); RBC 4.14 mil/uL (4.50-6.00); WBC 20.4 thou/uL (4.0-11.0)
[2019-12-13 05:11] LABS: ALBUMIN 1.6 g/dL (3.4-5.0); CALCIUM 7.6 mg/dL (8.5-10.1); CREATININE 1.4 mg/dL (0.7-1.3); MAGNESIUM 2.1 mg/dL (1.8-2.4); PHOSPHORUS 2.4 mg/dL (2.5-4.9); TOTAL BILIRUBIN 0.5 mg/dL (<0.1-1.0); TOTAL PROTEIN 4.4 g/dL (6.4-8.2)
[2019-12-13 05:14] LABS: POTASSIUM 2.8 mmol/L (3.5-5.1)
[2019-12-13 07:21] VITALS: BP 103/63
[2019-12-13 08:00] VITALS: BP 103/63
[2019-12-13 08:43] LABS: ABSOLUTE NEUTROPHILS 18.6 thou/uL (1.4-8.2); PLATELET ESTIMATE SLIGHTLY DECREASED; POIKILOCYTOSIS SLIGHT
[2019-12-13 08:44] LABS: BURR CELLS OCCASIONAL; LARGE PLATELETS FEW
[2019-12-13 08:53] LABS: ANISOCYTOSIS SLIGHT; MACROCYTES FEW
[2019-12-13 13:58] LABS: CALCIUM 9.4 mg/dL (8.5-10.1); CREATININE 1.6 mg/dL (0.7-1.3); POTASSIUM 3.5 mmol/L (3.5-5.1)
[2019-12-13 14:02] LABS: ALBUMIN 1.9 g/dL (3.4-5.0); PHOSPHORUS 2.7 mg/dL (2.5-4.9)
--- NOTE | 2019-12-13 18:34 | NUR ---
FAMILY HERE AND SPOKE WITH DR ELLIS. THEY DECIDED THEY DID NOT WANT ANY AGGRESSIVE MEASURES TO PATIENT. STATED THEY WILL LIKE HIM TO GO TO HOSPICE HOUSE. PATIENT IS NOT ABLE TO EAT OR VOICE CONCERNS. HE KEEPS YELLING ONCE A WHILE. CANALES STILL PLACE. WILL CONT WITH PLAN OF CARE.
[2019-12-13 19:19] VITALS: BP 154/63
--- NOTE | 2019-12-14 03:12 | NUR ---
ASSESSED AND IS ALERT X 1. YELLS OUT ALOT. TUNED Q 2 HOURS AND PRN. MREFUSED TO TURN AT 2000. REMAINS ON BEDREST. CANALES INTACT WITH SANDHYA URINE. IV SITE HEALTHY BUT LEFT ARM IS EDEMOTOUS AND WEEPING SOME THIS SHIFT. IV FLUIDS INFUSING AT 100CC /HOUR.NOT TAKING ANYTHING BY MOUTH EXCEPT 1 PAIN MED. LIKES TO KEEP IN SIDE OF HIS MOUTH. MOUTH CARFE DONE. REDDNESS TO LEFT ARM WITH BRUISING NOTED. AND SWOLLEN AREAS NOTED. PROFO BOOTS INTACT. REMAINS A NFALL RISK. YELLS OUT ALOT. WILL NOT TELL U WANT HE WANTS. ON ROOM AIR. CONT PLAN OF CARE. DENIES ANY NEEDS.
[2019-12-14 04:25] VITALS: BP 145/67
--- NOTE | 2019-12-14 04:57 | HC ---
[facility] [place] [address] [place] [address] CONSULTATION Name: CÉSAR AKHTAR Room #: 354-P ADM IN M.R.#: [id number] Admission: 12/11/19 Attend Phys: Joyce Liao MD Discharge: Date of : 44 Report #: [id number] THIS REPORT FOR: cc: Bonita Prabhakar MD,Bonita Benitez,Emiliano Newberry MD ~ CC: Aroldo Liao DATE OF SERVICE: 12/13/2019 ATTENDING PHYSICIAN: Dr. Liao. REASON FOR EVALUATION: Group B strep septicemia with profound encephalopathy. HISTORY OF PRESENT ILLNESS: Chart reviewed, patient examined. This is a 79-year-old, diabetes mellitus type 2, also has end-stage renal disease, has a transplant kidney, does have dementia as well who was admitted to my facility, noted to have increasing encephalopathy, decreased responsiveness and felt to be somewhat dehydrated, was given fluids due to lack of clear evidence as to the etiology was, evaluation was undertaken and borderline hypotension. This was associated with a first degree AV block with bradycardia. He is not having fevers. Evaluation including urinalysis was otherwise unremarkable. Chest x-ray was generally unremarkable as well, white count was elevated to 20,000. Blood cultures collected at the time of admission, now with growth of group B strep in 11/23, started empirically on broad-spectrum therapy. This was pared down, currently he is on ceftriaxone and metronidazole. At this point, he is markedly encephalopathic. He appears to be in moderate to marked distress. He moans. There is no purposeful interaction. ALLERGIES: LISTED TO IODINE. CURRENT MEDICATIONS: Include vancomycin, ceftriaxone, mirtazapine, insulin, tacrolimus, mycophenolate, and metronidazole. PAST MEDICAL HISTORY: As described above, diabetes mellitus type 2, it has been complicated by stroke, hemiplegia, left side and has some associated dementia with behavioral disturbances, history of depression, kidney transplant, reflux, osteoarthritis, gout, and hyperlipidemia. SOCIAL HISTORY: Not obtainable. FAMILY HISTORY: Not obtainable. REVIEW OF SYSTEMS: Not obtainable. [facility] [address] [place] [address] CONSULTATION Name: CÉSAR AKHTAR Room #: 354-P [facility] IN M.R.#: [id number] Admission: 12/11/19 Attend Phys: Joyce Liao MD Discharge: Date of : 44 Report #: [id number] PHYSICAL EXAMINATION: GENERAL: He appears in [id number] distress. He has been given some morphine, which seems to be settling down. Apparently, he has been yelling all day ____ when verbally or lightly physically stimulated, he does respond, appears chronically ill, undernourished. VITAL SIGNS: Temperature 96.1, pulse 54, respirations 20, blood pressure 103/63. SKIN: Warm, dry, no rashes. HEENT: Remarkable for right periorbital swelling. He does appear to have some chemosis with some subconjunctival hemorrhage. There is some asymmetry of his pupils as well. He does respond as if it hurts significantly doing a minimal such as peeling back the upper eyelid, teeth disrepair. Dry mucous membranes. NECK: Appears to be supple. LUNGS: Few scattered coarse breath sounds. HEART: Borderline bradycardic. I do not appreciate a murmur. ABDOMEN: Soft, nontender, no peritoneal signs. GENITOURINARY AND RECTAL: Deferred. LABORATORY DATA: Recent electrolytes: Sodium 149, potassium 3.5, chloride 116, bicarb is 24, anion gap of 9, BUN and creatinine 98 and 1.6, albumin 1.9. CBC: White count of 20.4, H and H 12.4 and 38.2, platelets of 133, 9% bands. Blood cultures identified as group B strep. Hemoglobin A1c is 6.1. MRSA positive on surveillance by PCR. Urine culture is negative thus far. ASSESSMENT AND PLAN: Group B strep septicemia of unclear etiology is a notable finding, I think the chemosis and periorbital swelling. There is no way of obtaining additional information from him. We will continue broad spectrum antimicrobials, may need additional imaging studies, there was discussion about possible hospice in the event that ____ the direction that is chosen this would make him comfortable. <ELECTRONICALLY SIGNED> By: Emiliano Benitez MD 12/14/19 [id number] Emiliano Benitez MD /nt
[2019-12-14 07:03] VITALS: BP 150/60
[2019-12-14 13:30] VITALS: BP 150/60
--- NOTE | 2019-12-14 20:12 | NUR ---
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 Patient was unable to take anything by mouth today d/t his mental status. large amount of weeping dependent edema to upper extremities skin is translucent. Rt eye has periorbital edema the scelara is very red with green/yellow drainage eye ointment being given. Perez cath draining deisy clear urine. SL patent to left lower FA, and left ac.
== END 2019-12-14 14:26 | disposition hospice, home (50) | DRG 871 ==
LOC: ER 12:38 → 3W 14:33 → EROBS 14:33 → 3W 16:09
PROVIDERS: Physician Assistant; ADMIT Internal Medicine
DX: A40.1 Sepsis due to streptococcus, group B (principal); E43 Unspecified severe protein-calorie malnutrition; J18.9 Pneumonia, unspecified organism; G92 Toxic encephalopathy; N18.6 End stage renal disease; T86.19 Other complication of kidney transplant; N17.9 Acute kidney failure, unspecified; I69.354 Hemiplegia and hemiparesis following cerebral infarction affecting left non-dominant side; R65.20 Severe sepsis without septic shock; F32.9 Major depressive disorder, single episode, unspecified; K21.9 Gastro-esophageal reflux disease without esophagitis; M19.90 Unspecified osteoarthritis, unspecified site; M10.9 Gout, unspecified; G47.00 Insomnia, unspecified; E78.5 Hyperlipidemia, unspecified; E11.22 Type 2 diabetes mellitus with diabetic chronic kidney disease; E78.00 Pure hypercholesterolemia, unspecified; F03.90 Unspecified dementia, unspecified severity, without behavioral disturbance, psychotic disturbance, mood disturbance, and anxiety; Y83.8 Other surgical procedures as the cause of abnormal reaction of the patient, or of later complication, without mention of misadventure at the time of the procedure; I95.9 Hypotension, unspecified; F10.20 Alcohol dependence, uncomplicated; E11.65 Type 2 diabetes mellitus with hyperglycemia; L89.91 Pressure ulcer of unspecified site, stage 1; E87.6 Hypokalemia; Z80.1 Family history of malignant neoplasm of trachea, bronchus and lung; Z91.041 Radiographic dye allergy status; Z87.891 Personal history of nicotine dependence; Z68.28 Body mass index [BMI] 28.0-28.9, adult
CPT/HCPCS: 10779; 10879